=== PATIENT | female | born 2000 | race American Indian/Alaskan Native ===

== ENCOUNTER 2021-02-19 23:00 | Emergency (ER) | payer MEDICAID ==
[2021-02-19 23:10] VITALS: BP 132/79
[2021-02-19] MEDS ORDERED: ASPIRIN 325 MG TAB PO ONE (23:50)
--- NOTE | 2021-02-19 23:51 | Emergency Department Report ---
ED Chest Pain HPI - General Chief Complaint: Chest Pain Stated Complaint: CHEST PAIN/LEFT ARM NUMBNESS PUI?: No Time Seen by Provider: 02/19/21 23:46 Source: patient Mode of arrival: Ambulatory Limitations: No Limitations - History of Present Illness Initial Comments: Patient is a 20-year-old female that presents emergency room with complaints of substernal chest pain rating to her left arm. Patient states it happened after eating. Patient states the pain was a 10 out of 10. Patient states the pain lasted for 2 hours and is now resolved. Patient states she had shortness of breath and anxiety as well. Patient states her chest pain was better with rest and worse with exertion and movement. Patient states her shortness of breath is better with rest and worse with exertion. Patient states started while she was on the plane traveling back to [place]. Patient states she just landed approximately 2 hours ago from [place] and came to the hospital because of the chest pain. Patient denies control. Patient states her period was 1 week ago. Patient states she was tested for COVID-19 prior to going to [place] and just prior to getting on the plane tonight. Patient states her Covid has been negative. Patient states she is not had the Covid vaccine. Patient denies exposure to the novel coronavirus. Patient denies sick contacts. Patient denies fever and chills. Patient denies cough. Patient denies diarrhea. Patient denies coming in contact with anybody with symptoms of the novel coronavirus. MD Complaint: chest pain -: Sudden Onset: during rest Pain Location: substernal, left chest Pain Radiation: LUE Severity scale (0 -10): 0 Consistency: now resolved Improves With: rest Worsens With: exertion re: dyspnea. denies: nausea, vomting, diaphoresis Other Symptoms: denies: cough, fever, syncope, rash, acid taste in mouth, leg swelling, palpitations, burping Treatments Prior to Arrival: none Aspirin use within the Past 7 Days: (0) No - Related Data On Oral Contraceptives: No Allergies Allergy/AdvReac Type Severity Reaction Status Date / Time No Known Allergies Allergy Unverified 02/19/21 23:10 Heart Score - HEART Score History: Slightly suspicious EKG: Normal Age: < 45 Risk factors: No known risk factors Troponin: < normal limit HEART Score: 0 - EKG Read Time Time EKG Completed: 23:31 EKG Read Time: 23:31 ED Review of Systems ROS: Stated complaint: CHEST PAIN/LEFT ARM NUMBNESS Other details as noted in HPI Constitutional: denies: chills, fever Eyes: denies: eye pain, eye discharge, vision change ENT: denies: ear pain, throat pain Respiratory: see HPI, shortness of breath. denies: cough, wheezing Cardiovascular: as per HPI, chest pain. denies: palpitations Endocrine: no symptoms reported Gastrointestinal: denies: abdominal pain, nausea, diarrhea Genitourinary: denies: urgency, dysuria, discharge Musculoskeletal: denies: back pain, joint swelling, arthralgia Skin: denies: rash, lesions Neurological: denies: headache, weakness, paresthesias Psychiatric: anxiety. denies: depression Hematological/Lymphatic: denies: easy bleeding, easy bruising ED Past Medical Hx - Past Medical History Previous Medical History?: No - Surgical History Past Surgical History?: No - Family History Family history: no significant - Social History Smoking Status: Never Smoker Substance Use Type: None ED Physical Exam - General Limitations: No Limitations General appearance: alert, in no apparent distress - Head Head exam: Present: atraumatic, normocephalic - Eye Eye exam: Present: normal appearance - ENT ENT exam: Present: mucous membranes moist - Neck Neck exam: Present: normal inspection - Respiratory Respiratory exam: Present: normal lung sounds bilaterally. Absent: respiratory distress, wheezes, rales, chest wall tenderness, accessory muscle use, decreased breath sounds - Cardiovascular Cardiovascular Exam: Present: regular rate, normal rhythm, normal heart sounds. Absent: systolic murmur, diastolic murmur, rubs, gallop - GI/Abdominal GI/Abdominal exam: Present: soft, normal bowel sounds. Absent: distended, tenderness, guarding - Extremities Exam Extremities exam: Present: normal inspection - Back Exam Back exam: Present: normal inspection - Neurological Exam Neurological exam: Present: alert, oriented X3 - Psychiatric Psychiatric exam: Present: normal affect, normal mood - Skin Skin exam: Present: warm, dry, intact, normal color. Absent: rash ED Course Vital Signs 02/19/21 23:10 Temperature 98.3 F Pulse Rate 79 Respiratory 16 Rate Blood Pressure 132/79 [Right] O2 Sat by Pulse 100 Oximetry - Reevaluation(s) Reevaluation #1: Patient is still pain-free I discussed all results and clinical findings with patient. I discussed plan of care with patient. Patient agrees with plan of care. Patient is stable for discharge. Patient will be discharged home. Patient given discharge instructions. Patient voiced understanding of discharge instructions. 02/20/21 01:41 VIVEK score - Vivek Score Age > 65: (0) No Aspirin use within the Past 7 Days: (0) No 3 or more CAD Risk Factors: (0) No 2 or more Angina events in past 24 hrs: (0) No Known CAD with more than 50% Stenosis: (0) No Elevated Cardiac Markers: (0) No ST Deviation Greater than 0.5mm: (0) No VIVEK Score: 0 ED Medical Decision Making - Lab Data Result diagrams: 02/19/21 23:54 02/19/21 23:54 - EKG Data -: EKG Interpreted by Me EKG shows normal: sinus rhythm, axis, intervals, QRS complexes, ST-T waves Rate: normal - Radiology Data Radiology results: report reviewed, image reviewed interpreted by me: Chest x-ray: No pneumonia, no pneumothorax, no foreign body, no osseous findings, no acute findings CHEST 1 VIEW 02/19/2021 12:57 AM INDICATION / CLINICAL INFORMATION: Chest Pain. COMPARISON: None available. FINDINGS: SUPPORT DEVICES: None. HEART / MEDIASTINUM: No significant abnormality. LUNGS / PLEURA: No significant pulmonary abnormality. No significant pleural effusion. No pneumothorax. ADDITIONAL FINDINGS: No significant additional findings. IMPRESSION: 1. No acute abnormality of the chest. - Medical Decision Making Patient is a 20-year-old female that presents emergency room with chest pain, shortness of breath anxiety. Patient had a recent long travel. Patient just recently landed from [place]. Patient has not had a COVID-19 vaccine. Patient tested negative twice in the last week for COVID-19. Patient complained of anxiety at the time. Patient chest pain started while she was in the plane. Patient landed and immediately came to the emergency room. Patient had a chest x-ray which was negative for acute findings. Patient had EKG which was negative for acute finding. Patient EKG showed normal ST. Patient's EKG showed normal sinus rhythm. I personally reviewed EKG and chest x-ray. Patient had labs done which were essentially unremarkable patient's troponin was negative. Patient was pain-free upon initial evaluation. Patient chest pain appears to be secondary to anxiety. Since the patient presents emergency room with complaints of chest pain, the patient will be referred to an outpatient law reporter for further evaluation and treatment and risk stratification. Patient is stable for discharge. Patient not require further inpatient services. Patient not require further emergency room services. - Differential Diagnosis Chest pain, breath, anxiety, chest wall strain, pneumonia, PE Critical care attestation.: If time is entered above; I have spent that time in minutes in the direct care of this critically ill patient, excluding procedure time. ED Disposition Clinical Impression: Anxiety, SOB (shortness of breath) Chest pain Qualifiers: Chest pain type: unspecified Qualified Code(s): R07.9 - Chest pain, unspecified Disposition: TO HOME OR SELFCARE Is pt being admited?: No Does the pt Need Aspirin: No Condition: Stable Instructions: Nonspecific Chest Pain, Adult, Chest Wall Pain, [id number], Nonspecific Chest Pain, Adult, [id number], Managing Anxiety, Teen, Chest Wall Pain Additional Instructions: Patient to follow-up with primary care in 2 to 3 days. Patient to follow-up with law reporter in 2 to 3 days. Patient to rest. Patient to increase water. Patient to avoid strenuous exercise or heavy lifting until cleared by law reporter. Patient to take Tylenol or ibuprofen as needed for pain. Patient to return to the ER if condition worsens, changes or new symptoms arise. Referrals: LAUREN GARNICA MD [Staff Physician] - 2-3 Days TRISTAN ENGLAND MD [Staff Physician] - 2-3 Days Time of Disposition: 01:45
[2021-02-20 00:44] LABS: Basophils % (Auto) 0.3 % (0.0-1.8); Eosinophils % (Auto) 0.4 % (0.0-4.3); Hematocrit 35.3 % (30.3-42.9); Hemoglobin 11.5 gm/dl (10.1-14.3); Lymphocytes # (Auto) 1.3 K/mm3 (1.2-5.4); Mean Corpuscular HGB Conc 33 % (30-34); Mean Corpuscular Volume 86 fl (79-97); Monocytes % (Auto) 11.2 % (0.0-7.3); Platelet Count 289 K/mm3 (140-440); Red Blood Count 4.09 M/mm3 (3.65-5.03); Red Cell Distribution Width 15.5 % (13.2-15.2)
[2021-02-20 01:06] LABS: Alanine Aminotransferase 8 units/L (7-56); Albumin 4.3 g/dL (3.9-5); Blood Urea Nitrogen 8 mg/dL (7-17); Calcium 9.4 mg/dL (8.4-10.2); Hemolysis Index 0
[2021-02-20 01:11] LABS: BUN/Creatinine Ratio 11
--- NOTE | 2021-02-20 01:28 | XRay Report ---
CHEST 1 VIEW 02/19/2021 12:57 AM INDICATION / CLINICAL INFORMATION: Chest Pain. COMPARISON: None available. FINDINGS: SUPPORT DEVICES: None. HEART / MEDIASTINUM: No significant abnormality. LUNGS / PLEURA: No significant pulmonary abnormality. No significant pleural effusion. No pneumothora x. ADDITIONAL FINDINGS: No significant additional findings. IMPRESSION: 1. No acute abnormality of the chest. Signer Name: Randell Holley MD Signed: 02/20/2021 1:23 AM Workstation Name: [id number]
--- NOTE | 2021-02-21 17:42 | Electrocardiograph Report ---
[facility] Test Date: 2021-02-19 Test Time: 23:31:55 Pat Name: ABBIE GUTIERREZ Department: Room: Gender: F [employer]: [id number] : 2000 Requested By: МАРИЯ MCKEON III Order Number: [id number] Reading MD: Jack Boone Measurements Intervals [place] Rate: 85 P: 57 IN: 119 QRS: 61 QRSD: 89 T: 47 QT: 377 QTc: 448 Interpretive Statements Sinus rhythm No previous ECG available for comparison Electronically Signed On 02-21-2021 17:41:56 EDT by Jack Boone
== END 2021-02-20 03:00 | disposition home or self-care (01) ==
LOC: ED 23:00
DX: R07.81 Pleurodynia (principal); F41.9 Anxiety disorder, unspecified; R06.02 Shortness of breath
CPT/HCPCS: 36415; 71045; 80053; 84484; 84703; 85025; 85379; 93005; 99283